=== PATIENT | male | born 2000 | race Caucasian/White ===

== ENCOUNTER 2019-09-01 18:05 | Emergency (ER) | payer BC, SELFPAY ==
[2019-09-01 18:20] VITALS: BP 136/77; PULSE 80; RESP 20; TEMP 37.2; O2SAT 100
--- NOTE | 2019-09-01 18:39 | ED_ITS ---
HPI - Wound/Laceration General Chief Complaint: Wound/Laceration Stated Complaint: L/THUMB LACERATION Related Data Allergies Allergy/AdvReac Type Severity Reaction Status Date / Time No Known Allergies Allergy Verified 01/23/19 14:42 Review of Systems Review of Systems: All systems reviewed & are unremarkable except as noted in HPI and below [facility] Family History Family History (Updated 02/02/18 @ 13:28 by DOCTOR UNKNOWN) Grandparent Depression Other Family history of arthritis Social History Social History Smoking status: Never smoker Alcohol intake: never Gender identity (if verbalized by the patient): Male Comments past medical , social, surgical and family history are as the rn has documented. Exam Const: General: no acute distress HENMT: Head: normal to inspection Eyes: Pupils: Equal, round and reactive pupils present Neck: Neck: normal visual inspection Chest: Chest palpation & inspection: normal inspection of the chest Resp: Effort & Inspection: normal respiratory effort Cardio: Rate: regular rate Extrem: Other: Left 1st finger had a 1.5 cm in length laceration that is linear clean cut this was not bleeding. Course Vital Signs Vital signs: Vital Signs Temperature 98.9 F 09/01/19 18:20 Pulse Rate 80 09/01/19 18:20 Respiratory Rate 20 09/01/19 18:20 Blood Pressure 136/77 09/01/19 18:20 Pulse Oximetry 100 09/01/19 18:20 Temperature 98.9 F 09/01/19 18:20 Pulse Rate 80 09/01/19 18:20 Respiratory Rate 20 09/01/19 18:20 Blood Pressure 136/77 09/01/19 18:20 Pulse Oximetry 100 09/01/19 18:20 Procedures Laceration Laceration 1: Date: 09/01/19 Time: 18:19 Site: upper extremity (1st finger) Side (If applicable): left Size (cm): 1.5 Description: linear Depth: simple, single layer Pre-repair: wound explored and irrigated (250 cc) ====== Skin Level ====== Skin layer closed with: dermabond and steri strips ====== Subcutaneous Layer ====== ====== Muscle Layer ====== ====== Tendon Layer ====== Dressing: Placed a finger splint for no further injury Discharge Plan Discharge Clinical Impression: Laceration Patient Disposition: Home, Self-Care Condition: Stable Instructions: Antibiotic Form, Finger Laceration (ED) Prescriptions: New cephalexin [Keflex] 500 mg capsule 500 mg PO Q12H 3 Days Qty: 6 RF: 0 Follow-up/Referrals: UNKNOWN,DOCTOR [Primary Care Provider] - Stand Alone Forms: Work/School Release IP Time of Disposition: 18:48 Discharge Date/Time: 09/01/19 18:51
== END 2019-09-01 18:51 | disposition home or self-care (01) ==
PROVIDERS: Emergency Provider Nurse Practitioner Family
DX: S61.012A Laceration without foreign body of left thumb without damage to nail, initial encounter (principal); X58.XXXA Exposure to other specified factors, initial encounter
CPT/HCPCS: 12001; 99212; G0463

== ENCOUNTER 2020-04-05 16:58 | Emergency (ER) | payer OTHER, BC, SELFPAY ==
[2020-04-05 17:15] VITALS: BP 144/94; PULSE 81; RESP 16; TEMP 36.7; O2SAT 100
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
[2020-04-05 19:30] VITALS: BP 127/68; PULSE 75; RESP 16; O2SAT 99
[2020-04-05 19:33] VITALS: BP 157/87; PULSE 68; RESP 18; TEMP 37.1; O2SAT 98
== END 2020-04-05 19:37 | disposition home or self-care (01) ==
PROVIDERS: Emergency Provider Emergency Medicine; PCP Internal Medicine
DX: R51 Headache (principal); S09.90XA Unspecified injury of head, initial encounter; V49.40XA Driver injured in collision with unspecified motor vehicles in traffic accident, initial encounter
CPT/HCPCS: 99283